=== PATIENT | male | born 1965 | race Native Hawaiian/Other Pacific Islander ===

== ENCOUNTER 2021-04-28 09:30 | Outpatient (CLI) | payer OTHER ==
[2021-04-28 10:24] LABS: PLATELET COUNT 181 K/uL (142-355)
[2021-04-28 10:36] LABS: POTASSIUM 4.2 mmol/L (3.6-5.2)
== END 2021-04-28 19:36 | disposition home or self-care (01) ==
LOC: LABW 09:30
PROVIDERS: ATTEND Nurse Practitioner Family
DX: M10.031 Idiopathic gout, right wrist (principal)
CPT/HCPCS: 36415; 80053; 84550; 85027